=== PATIENT | female | born 1985 | race Caucasian/White ===

== ENCOUNTER 2017-09-14 10:15 | Inpatient (IN) | payer OTHER ==
[~2017-09-14] VITALS: Ht 172.7 cm; Wt 65.8 kg
[~2017-09-14 10:15] MED LIST: CIPRO500 MG PO; FEROSUL325 ( 65 ) PO; HYOSCYAMINE0.125 M1 PO; OXYC1TAB9 PO
[2017-09-20] MEDS ORDERED: KETO10TA2 PO ×2 (06:22→06:29)
[2017-09-20] MEDS ORDERED: OXYC1TAB9 PO (06:23)
[2017-09-20] MEDS ORDERED: CIPRO500 MG PO ×2 (06:29)
[2017-09-20] MEDS ORDERED: PERCOCET 5-3251 EACH PO (06:29)
== END 2017-09-20 09:16 | DRG 743 ==
LOC: O/R 09-18 05:50 → OB/GYN 09-18 08:45
PROVIDERS: Obstetrics & Gynecology Gynecology
PROC: 0UB90ZZ Excision of Uterus, Open Approach (ICD-10-PCS; principal; 2017-09-18 08:45)
DX: D25.1 Intramural leiomyoma of uterus (principal)